=== PATIENT | male | born 1980 | race Caucasian/White ===

== ENCOUNTER 2021-06-28 13:05 | Emergency (ER) | payer SELFPAY ==
[~2021-06-28] VITALS: Ht 165.1 cm; Wt 81.6 kg
--- NOTE | 2021-06-28 13:20 | NUR ---
To ER bed 15, c/o forehead abrasion, head and neck pain s/p slip and fall from roof to ground face down, -loc, aaox3, breathing even and non labored, awaiting md orders
--- NOTE | 2021-06-28 14:27 | NUR ---
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
[2021-06-28] MEDS ORDERED: HYDROCODONE/APAP 5/325MG TABLET ONE ×2 (14:45→14:49)
[2021-06-28] MEDS ORDERED: TDAP [DIPH/PERTUSSIS/TET] 0.5 ML VIAL IM ONE ×2 (14:46→15:00)
[2021-06-28] MEDS ORDERED: IBUPROFEN 600 MG TABLET ONE (14:46)
[2021-06-28] MEDS ORDERED: IBUPROFEN 600 MG TABLET PO ONE (15:00)
[2021-06-28] MEDS ORDERED: HYDROCODONE/APAP 5/325MG TABLET PO ONE (15:00)
[2021-06-28] MEDS ORDERED: IBUP-1957 PO (15:29)
[2021-06-28] MEDS ORDERED: HYDR-3972 PO (15:29)
--- NOTE | 2021-06-28 16:13 | NUR ---
Patient discharged to home in stable condition. Written and verbal after care instructions given. Patient verbalizes understanding of instruction.
[2021-06-28 16:14] VITALS: BP 122/87
== END 2021-06-28 16:15 | disposition home or self-care (01) ==
LOC: ER 13:11
DX: S00.83XA Contusion of other part of head, initial encounter (principal); S33.5XXA Sprain of ligaments of lumbar spine, initial encounter; S80.02XA Contusion of left knee, initial encounter; S80.01XA Contusion of right knee, initial encounter; S63.501A Unspecified sprain of right wrist, initial encounter; W01.0XXA Fall on same level from slipping, tripping and stumbling without subsequent striking against object, initial encounter; Y93.89 Activity, other specified; Y92.89 Other specified places as the place of occurrence of the external cause; Y99.8 Other external cause status
CPT/HCPCS: 70450; 71045; 72125; 72128; 72131; 73110 ×2; 73564 ×2; 90471; 90715; 99284; L0172 ×2